=== PATIENT | male | born 1970 | race Two or more races ===

== ENCOUNTER 2024-08-04 09:04 | Emergency (ER) | payer OTHER ==
[~2024-08-04] VITALS: Ht 157.5 cm; Wt 68.9 kg
[2024-08-04 09:51] LABS: PH,URINE 5.5 (5.0-8.0); URINE APPEARANCE Clear; URINE BILIRRUBIN Negative (NEGATIVE); URINE BLOOD Negative; URINE COLOR Dark Yellow; URINE GLUCOSE Negative (NEGATIVE); URINE KETONE Negative (NEGATIVE); URINE LEUKOCYTE Negative; URINE NITRATE Positive; URINE PROTEIN Negative (NEGATIVE)
[2024-08-04 09:53] LABS: HEMATOCRIT 44.8 % (39.0-48.0); HEMOGLOBIN 15.6 g/dL (13-16.00); MEAN CELL VOLUME 92.6 fL (80.0-100.00); MEAN CORPUSCULAR HEMOGLOBIN 32.2 pg (27.00-32.0); MEAN CORPUSCULAR HGB CONC 34.8 g/dl (32.0-36.0); PLATELET COUNT 283 K/uL (150-450); RED BLOOD COUNT 4.83 M/uL (4.00-6.00); RED CELL DISTRIBUTION WIDTH 12.1 % (11.5-14.5); URINE BACTERIA 6.1 uL (0.0-1933); URINE EPITHELIAL CELLS 1.7 uL (0.0-38.8); URINE WBC 7.8 uL (0.0-23.2)
[2024-08-04 09:54] LABS: URINE RBC 1.3 uL (0.0-20.8)
[2024-08-04 10:18] LABS: CALCIUM 9.4 mg/dL (8.5-10.1); CREATININE SERUM 0.95 mg/dL (0.70-1.30); GFR 83.25; POTASSIUM 4.46 mEq/L (3.5-5.1)
== END 2024-08-04 11:00 | disposition home or self-care (01) ==
LOC: ER 09:07
PROVIDERS: General Practice
DX: N34.2 Other urethritis (principal)